=== PATIENT | female | born 1950 | race Hispanic/Latino ===

== ENCOUNTER → 2017-12-27 | Outpatient (CLI) | payer OTHER | END | disposition home or self-care (01) | LOC: OIH 08:28 | PROVIDERS: ATTEND Family Medicine | DX: M19.012 Primary osteoarthritis, left shoulder (principal) | CPT/HCPCS: 73030 ==

== ENCOUNTER → 2018-04-05 | Outpatient (CLI) | payer OTHER | END | disposition home or self-care (01) | LOC: RAH 11:06 | PROVIDERS: ATTEND Family Medicine | DX: Z12.31 Encounter for screening mammogram for malignant neoplasm of breast (principal) | CPT/HCPCS: 77067 ==

== ENCOUNTER 2018-08-05 04:38 | Emergency (ER) | payer OTHER ==
[2018-08-05 05:13] LABS: BASOPHILS % (AUTO) 0.6 % (0.0-5.0); EOSINOPHILS % (AUTO) 2.4 % (0.0-8.0); HEMATOCRIT 40.2 % (36-48); LYMPHOCYTES % (AUTO) 37.6 % (21.0-51.0); MEAN CORPUSCULAR HEMOGLOBIN 28.7 pg (27.0-33.0); MEAN CORPUSCULAR VOLUME 87.1 fL (79-99); MONOCYTES % (AUTO) 6.6 % (3.0-13.0); NEUTROPHILS % (AUTO) 52.8 % (40.0-77.0); PLATELET COUNT (AUTO) 223 K/uL (130-400); RED BLOOD CELL COUNT(AUTO) 4.62 MIL/uL (4.00-5.50); RED CELL DISTRIBUTION WIDTH 13.8 % (11.0-15.5); WHITE BLOOD COUNT (AUTO) 7.2 K/uL (4.8-10.8)
[2018-08-05 05:25] LABS: CREATININE 0.7 mg/dL (0.5-1.5); POTASSIUM 3.6 mmol/L (3.5-5.1)
[2018-08-05 05:27] LABS: APPEARANCE,URINE Clear (CLEAR); BILIRUBIN,URINE Negative (NEGATIVE); COLOR,URINE Yellow (YELLOW); GLUCOSE, URINE (UA) Negative (NEGATIVE); KETONES,URINE Negative (NEGATIVE); LEUKOCYTE ESTERASE ,URINE Small (NEGATIVE); NITRATE,URINE Negative (NEGATIVE); OCCULT BLOOD,URINE Negative (NEGATIVE); PH,URINE 5.5 (5.0-8.0); PROTEIN,URINE Negative (NEGATIVE); UROBILINOGEN,URINE 0.2 mg/dL (0.2-1.0)
[2018-08-05] MEDS ORDERED: SUCRALFATE 1 GM TABLET ONE (05:28)
[2018-08-05] MEDS ORDERED: HYOSCYAMINE SULFATE 0.125 MG TAB.SUBL SL ONE (05:28)
[2018-08-05 05:53] LABS: BACTERIA,URINE None Seen /HPF (None Seen); RBC,URINE None Seen /HPF (0-1); SQUAMOUS EPITHELIAL CELL,UR Rare /HPF (0-2); WBC,URINE 0-1 /HPF (0-1)
[2018-08-05 07:01] LABS: BILIRUBIN,DIRECT 0.1 mg/dL (0.0-0.3); BILIRUBIN,TOTAL 0.4 mg/dL (0.2-1.0); TOTAL PROTEIN, SERUM 7.3 g/dL (6.0-8.3)
== END 2018-08-05 07:26 | disposition home or self-care (01) ==
LOC: EDH 04:38
DX: R10.13 Epigastric pain (principal); I10 Essential (primary) hypertension; E78.00 Pure hypercholesterolemia, unspecified; K21.9 Gastro-esophageal reflux disease without esophagitis; F41.9 Anxiety disorder, unspecified; Z90.49 Acquired absence of other specified parts of digestive tract; Z90.710 Acquired absence of both cervix and uterus; Z88.1 Allergy status to other antibiotic agents; Z88.8 Allergy status to other drugs, medicaments and biological substances
CPT/HCPCS: 36415; 80048; 80076; 81001; 82150; 83690; 84484; 85025; 93005

== ENCOUNTER → 2018-09-18 | Outpatient (CLI) | payer OTHER, MEDICARE | END | disposition home or self-care (01) | LOC: RAH 10:37 | PROVIDERS: ATTEND Internal Medicine Gastroenterology | DX: R14.0 Abdominal distension (gaseous) (principal); R10.9 Unspecified abdominal pain; R11.0 Nausea | CPT/HCPCS: 78264; A9541 ==

== ENCOUNTER → 2018-11-17 | Outpatient (CLI) | payer OTHER, MEDICARE | END | disposition home or self-care (01) | LOC: OIH 14:40 | PROVIDERS: ATTEND Family Medicine | DX: M25.561 Pain in right knee (principal) | CPT/HCPCS: 73562 ==

== ENCOUNTER → 2019-05-04 | Outpatient (CLI) | payer OTHER, MEDICARE | END | disposition home or self-care (01) | LOC: RAH 10:52 | PROVIDERS: ATTEND Family Medicine | DX: Z12.31 Encounter for screening mammogram for malignant neoplasm of breast (principal) | CPT/HCPCS: 77067 ==

== ENCOUNTER → 2019-05-07 | Outpatient (CLI) | payer OTHER, MEDICARE | END | disposition home or self-care (01) | LOC: RAH 10:00 | PROVIDERS: ATTEND Family Medicine | DX: R32 Unspecified urinary incontinence (principal); M54.5 Low back pain | CPT/HCPCS: 76770 ==

== ENCOUNTER 2020-09-22 13:31 | Emergency (ER) | payer OTHER, MEDICARE ==
[~2020-09-22] VITALS: Ht 154.9 cm; Wt 60.3 kg
[2020-09-22 13:38] VITALS: BP 154/66
[2020-09-22 17:50] VITALS: BP 154/66
[2020-09-22 18:28] LABS: BASOPHILS % (AUTO) 0.2 % (0.0-5.0); HEMATOCRIT 40.2 % (36-48); LYMPHOCYTES % (AUTO) 37.8 % (21.0-51.0); MEAN CORPUSCULAR HEMOGLOBIN 28.5 pg (27.0-33.0); MEAN CORPUSCULAR HGB CONC 33.1 g/dL (32.0-36.0); MEAN CORPUSCULAR VOLUME 86.1 fL (79-99); NEUTROPHILS % (AUTO) 52.8 % (40.0-77.0); PLATELET COUNT (AUTO) 169 K/uL (130-400); RED BLOOD CELL COUNT(AUTO) 4.67 MIL/uL (4.00-5.50); RED CELL DISTRIBUTION WIDTH 13.9 % (11.0-15.5)
[2020-09-22] MEDS ORDERED: DEXAMETHASONE 10MG/ML 1ML VIAL 0 MG in 0.9%NACL 50ML 50 ML IV SCH (19:00)
[2020-09-22 19:39] LABS: CREATININE 0.8 mg/dL (0.5-1.5)
[2020-09-22 19:43] LABS: ALBUMIN 3.6 g/dL (3.5-5.0); BILIRUBIN,TOTAL 0.3 mg/dL (0.2-1.0); TOTAL PROTEIN, SERUM 7.8 g/dL (6.0-8.3)
[2020-09-22] MEDS: PHARMACY COMMUNICATION MISC SCH ×4 (20:30→23:30)
[2020-09-22] MEDS ORDERED: 0.9%NACL 1000ML 1,000 ML IV ONE (20:30)
[2020-09-22] MEDS ORDERED: DEXAMETHASONE SOD PHOSPHATE 10MG/ML 1ML VIAL ONE (20:33)
[2020-09-22] MEDS ORDERED: DEXAMETHASONE SOD PHOSPHATE 10MG/ML 1ML VIAL IVP STA (20:36)
[2020-09-22] MEDS ORDERED: CETI10CA5 PO (20:51)
[2020-09-22] MEDS ORDERED: DICY20TA2 PO (20:51)
[2020-09-22] MEDS ORDERED: DEXA6TAB7 PO (20:51)
[2020-09-22] MEDS ORDERED: AZIT500T4 PO (20:51)
[2020-09-22] MEDS ORDERED: IVER3TAB PO (20:51)
[2020-09-22] MEDS ORDERED: ONDA4TAB10 PO (20:51)
[2020-09-22] MEDS ORDERED: 0.9% NACL 250ML 250 ML IV ONE (21:00)
[2020-09-22] MEDS ORDERED: AZITHROMYCIN 500MG+NS 250ML IV ONE (21:00)
[2020-09-22 23:39] VITALS: BP 148/70
== END 2020-09-23 00:38 | disposition home or self-care (01) ==
LOC: EDH 13:31
DX: U07.1 COVID-19 (principal); A08.4 Viral intestinal infection, unspecified; E78.00 Pure hypercholesterolemia, unspecified; I10 Essential (primary) hypertension; Z79.52 Long term (current) use of systemic steroids; Z88.1 Allergy status to other antibiotic agents; Z88.2 Allergy status to sulfonamides
CPT/HCPCS: 36415; 71045; 80053; 83690; 85025; 87635; 87804 ×2; 96365; 96375; 99284; C9803; J0456; J1100; J7030

== ENCOUNTER 2020-09-29 18:36 | Inpatient (IN) | payer OTHER, MEDICARE ==
[~2020-09-29] VITALS: Ht 154.9 cm; Wt 59.0 kg
[~2020-09-29 18:36] MED LIST: AZIT500T4 PO; CETI10CA5 PO; DEXA6TAB7 PO; DICY20TA2 PO; IVER3TAB PO; ONDA4TAB10 PO
[2020-09-29 18:50] VITALS: BP 148/64
[2020-09-29] MEDS ORDERED: HYDRALAZINE 20MG/ML VIAL IV PRN (19:00)
[2020-09-29 19:13] LABS: BASOPHILS % (AUTO) 0.1 % (0.0-5.0); EOSINOPHILS % (AUTO) 0.2 % (0.0-8.0); HEMATOCRIT 34.1 % (36-48); LYMPHOCYTES % (AUTO) 12.1 % (21.0-51.0); MEAN CORPUSCULAR HEMOGLOBIN 27.7 pg (27.0-33.0); MEAN CORPUSCULAR HGB CONC 32.6 g/dL (32.0-36.0); MONOCYTES % (AUTO) 6.1 % (3.0-13.0); NEUTROPHILS % (AUTO) 80.4 % (40.0-77.0); PLATELET COUNT (AUTO) 339 K/uL (130-400); RED BLOOD CELL COUNT(AUTO) 4.01 MIL/uL (4.00-5.50); RED CELL DISTRIBUTION WIDTH 13.6 % (11.0-15.5); WHITE BLOOD COUNT (AUTO) 9.1 K/uL (4.8-10.8)
[2020-09-29 19:27] LABS: CREATININE 0.7 mg/dL (0.5-1.5); POTASSIUM 4.1 mmol/L (3.5-5.1)
[2020-09-29 19:31] LABS: ALBUMIN 2.4 g/dL (3.5-5.0); BILIRUBIN,TOTAL 0.5 mg/dL (0.2-1.0); TOTAL PROTEIN, SERUM 6.6 g/dL (6.0-8.3)
[2020-09-29 19:34] LABS: INR 0.93 (0.85-1.15); PROTHROMBIN TIME 10.2 SEC (9.6-11.6)
[2020-09-29 19:36] LABS: PARTIAL THROMBOPLASTIN TIME 23.6 SEC (26.3-35.5)
[2020-09-29 19:53] VITALS: BP 136/65
[2020-09-29] MEDS ORDERED: IPRATROPIUM 0.5 MG/2.5 ML INH IH STA (19:58)
[2020-09-29] MEDS ORDERED: ALBUTEROL INHALER 90MCG/INH IH STA (19:58)
[2020-09-29] MEDS ORDERED: MONTELUKAST SODIUM 10 MG TAB PO SCH (20:00)
[2020-09-29] MEDS ORDERED: MAGNESIUM 2GM PREMIX 50ML 50 ML IV SCH (20:00)
[2020-09-29] MEDS ORDERED: ENOXAPARIN SODIUM 60 MG/0.6 ML SQ ONE (20:37)
[2020-09-29] MEDS ORDERED: ALBUTEROL INHALER 90MCG/INH IH ONE (21:11)
[2020-09-29] MEDS: DEXAMETHASONE SOD PHOSPHATE 4 MG/ML 1ML VIAL IVP SCH (21:12)
[2020-09-29 21:37] VITALS: BP 119/56
[2020-09-30 00:04] VITALS: BP 108/52
[2020-09-30] MEDS: AZITHROMYCIN 500MG+NS 250ML IV SCH (03:27)
[2020-09-30] MEDS ORDERED: DEXTROSE 50%-WATER 50 ML DISP.SYRIN IV PRN (03:30)
[2020-09-30] MEDS ORDERED: KCL 20 MEQ ERTAB PO PRN (03:30)
[2020-09-30] MEDS ORDERED: ONDANSETRON 4MG INJ IV PRN (03:30)
[2020-09-30] MEDS ORDERED: DOXYCYCLINE 100MG IVPB (VIAL) IVPB SCH (03:30)
[2020-09-30] MEDS ORDERED: POTASSIUM CHLORIDE 10MEQ/100ML 100 ML IV PRN (03:30)
[2020-09-30] MEDS ORDERED: AZITHROMYCIN 500MG VIAL IVPB SCH (03:30)
[2020-09-30] MEDS ORDERED: LABETALOL 20MG SYG IV PRN (03:30)
[2020-09-30] MEDS ORDERED: NITROGLYCERIN 0.4 MG SL TAB SL PRN (03:30)
[2020-09-30] MEDS ORDERED: GLUCAGON 1MG KIT 1 MG ML IM PRN (03:30)
[2020-09-30] MEDS ORDERED: ACETAMINOPHEN 325 MG TAB PO PRN ×2 (03:30)
[2020-09-30] MEDS ORDERED: MAG/ALUM/SIMETH 30 ML UDCUP PO PRN (03:30)
[2020-09-30] MEDS ORDERED: POTASSIUM CHLORIDE 10% ELIXIR 20 MEQ/15 ML UDCUP PO PRN (03:30)
[2020-09-30] MEDS ORDERED: GUAIFENESIN-DM 200/20 MG 10 ML PO PRN (03:30)
[2020-09-30] MEDS ORDERED: ZOLPIDEM TARTRATE 5 MG TAB PO PRN (03:30)
[2020-09-30] MEDS ORDERED: 0.9% NACL 250ML IVPB SCH ×2 (03:30)
[2020-09-30] MEDS ORDERED: MAGNESIUM 2GM PREMIX 50ML 50 ML IV PRN (03:30)
[2020-09-30 03:37] VITALS: BP 119/60
[2020-09-30] MEDS: 0.9% NACL 250ML 250 ML IV SCH ×3 (03:54→16:26)
[2020-09-30] MEDS: DOXYCYCLINE 100MG+NS 250ML IV SCH ×2 (04:29→16:26)
[2020-09-30 06:14] LABS: BASOPHILS % (AUTO) 0.2 % (0.0-5.0); HEMATOCRIT 34.6 % (36-48); LYMPHOCYTES % (AUTO) 7.1 % (21.0-51.0); MEAN CORPUSCULAR HEMOGLOBIN 27.7 pg (27.0-33.0); MEAN CORPUSCULAR HGB CONC 31.5 g/dL (32.0-36.0); MEAN CORPUSCULAR VOLUME 87.8 fL (79-99); MONOCYTES % (AUTO) 2.7 % (3.0-13.0); NEUTROPHILS % (AUTO) 88.9 % (40.0-77.0); PLATELET COUNT (AUTO) 302 K/uL (130-400); RED BLOOD CELL COUNT(AUTO) 3.94 MIL/uL (4.00-5.50); RED CELL DISTRIBUTION WIDTH 13.6 % (11.0-15.5); WHITE BLOOD COUNT (AUTO) 6.6 K/uL (4.8-10.8)
[2020-09-30 06:35] LABS: ALBUMIN 2.1 g/dL (3.5-5.0); BILIRUBIN,TOTAL 0.4 mg/dL (0.2-1.0); CREATININE 0.6 mg/dL (0.5-1.5); CRP QUANTITATIVE 150.7 mg/L (0.00-9.0); POTASSIUM 4.4 mmol/L (3.5-5.1); TOTAL PROTEIN, SERUM 6.4 g/dL (6.0-8.3)
[2020-09-30] MEDS ORDERED: IOHEXOL 350 MG/ML 100ML INFUS..BTL IV ONE (06:41)
[2020-09-30 06:53] LABS: LYMPHOCYTES % (MANUAL) 6 % (22-44); MAN.DIFF COMMENT-IMPRESSION MANUAL DIFFERENTIAL; MONOCYTES % (MANUAL) 3 % (2-9); PLATELET MORPHOLOGY COMMENT ADEQUATE; SEGMENTED NEUTROPHILS % 91 % (40-70)
[2020-09-30] MEDS: INSULIN HUMULIN R 100 UNIT/ML 3ML SQ SCH ×4 (07:30→21:32)
[2020-09-30 08:30] VITALS: BP 135/63
[2020-09-30] MEDS: FAMOTIDINE 20MG VIAL IV SCH (09:00)
[2020-09-30] MEDS ORDERED: SOLU-MEDROL 125MG VIAL IVP SCH (09:00)
[2020-09-30] MEDS: ATORVASTATIN 10 MG TABLET PO SCH (09:06)
[2020-09-30] MEDS: BENZONATATE 100 MG CAPSULE PO SCH ×3 (09:06→21:31)
[2020-09-30] MEDS: LISINOPRIL 10 MG TABLET PO SCH (09:06)
[2020-09-30] MEDS: ENOXAPARIN SODIUM 40 MG/0.4 ML SYRINGE SQ SCH (09:06)
[2020-09-30] MEDS: FENOFIBRATE NANOCRYSTALLIZED 145 MG TAB PO SCH ×2 (10:00→10:05)
[2020-09-30] MEDS ORDERED: FUROSEMIDE 20MG VIAL IV SCH (11:00)
[2020-09-30] MEDS: LORAZEPAM 2 MG/ML 1 ML VIAL IVP PRN (13:07)
[2020-09-30] MEDS: DICYCLOMINE HCL 20 MG TAB PO SCH ×2 (15:16→21:31)
[2020-09-30 16:55] VITALS: BP 135/74
[2020-09-30] MEDS: SOLU-MEDROL 125MG VIAL IVP SCH (17:33)
[2020-09-30 19:40] LABS: APPEARANCE,URINE Clear (CLEAR); BILIRUBIN,URINE Negative (NEGATIVE); COLOR,URINE Yellow (YELLOW); GLUCOSE, URINE (UA) Negative (NEGATIVE); KETONES,URINE Negative (NEGATIVE); LEUKOCYTE ESTERASE ,URINE Negative (NEGATIVE); NITRATE,URINE Negative (NEGATIVE); OCCULT BLOOD,URINE Negative (NEGATIVE); PH,URINE 5.5 (5.0-8.0); PROTEIN,URINE Negative (NEGATIVE); UROBILINOGEN,URINE 0.2 mg/dL (0.2-1.0)
[2020-09-30 20:50] VITALS: BP 121/61
[2020-09-30] MEDS: DEXAMETHASONE SOD PHOSPHATE 4 MG/ML 1ML VIAL IVP SCH (21:31)
[2020-10-01] MEDS: SOLU-MEDROL 125MG VIAL IVP SCH ×3 (00:43→17:13)
[2020-10-01] MEDS: 0.9% NACL 250ML 250 ML IV SCH ×3 (03:01→17:13)
[2020-10-01] MEDS: AZITHROMYCIN 500MG+NS 250ML IV SCH (03:01)
[2020-10-01 04:51] VITALS: BP 124/54
[2020-10-01 05:45] VITALS: BP 135/62
[2020-10-01 06:35] LABS: HEMATOCRIT 35.3 % (36-48); MEAN CORPUSCULAR HEMOGLOBIN 27.9 pg (27.0-33.0); MEAN CORPUSCULAR VOLUME 87.2 fL (79-99); MONOCYTES % (AUTO) 5.4 % (3.0-13.0); NEUTROPHILS % (AUTO) 86.8 % (40.0-77.0); PLATELET COUNT (AUTO) 368 K/uL (130-400); RED BLOOD CELL COUNT(AUTO) 4.05 MIL/uL (4.00-5.50); RED CELL DISTRIBUTION WIDTH 13.2 % (11.0-15.5); WHITE BLOOD COUNT (AUTO) 10.6 K/uL (4.8-10.8)
[2020-10-01 06:46] LABS: CREATININE 0.7 mg/dL (0.5-1.5); CRP QUANTITATIVE 88.5 mg/L (0.00-9.0); MAGNESIUM 2.5 mg/dL (1.80-2.40); PHOSPHORUS 4.3 mg/dL (2.5-4.9); POTASSIUM 3.8 mmol/L (3.5-5.1)
[2020-10-01] MEDS ORDERED: HYDROCODONE/ACETAMINOPHEN 5/325 MG TAB PO PRN (07:00)
[2020-10-01 07:23] LABS: ABG BASE EXCESS 4.9 mmol/L (-2.0-3.0); ABG HCO3 29.2 mmol/L (21.0-28.0); ABG OXYGEN SATURATION 97.1 % (95.0-99.0); ABG PCO2 42 mmHg (32-45)
[2020-10-01] MEDS ORDERED: [UNRECOGNIZED DRUG - REMARK] MISC SCH (07:30)
[2020-10-01] MEDS ORDERED: COMPOUND IV REFRIGERATED 1 EACH IVSOLN MISC PRN (08:00)
[2020-10-01 08:30] VITALS: BP 137/59
[2020-10-01] MEDS: CETIRIZINE HCL 5 MG TABLET PO SCH (09:35)
[2020-10-01] MEDS: FENOFIBRATE NANOCRYSTALLIZED 145 MG TAB PO SCH ×2 (09:35→09:49)
[2020-10-01] MEDS: DICYCLOMINE HCL 20 MG TAB PO SCH ×3 (09:36→20:19)
[2020-10-01] MEDS: ENOXAPARIN SODIUM 40 MG/0.4 ML SYRINGE SQ SCH (09:36)
[2020-10-01] MEDS: BENZONATATE 100 MG CAPSULE PO SCH ×3 (09:36→20:19)
[2020-10-01] MEDS: INSULIN HUMULIN R 100 UNIT/ML 3ML SQ SCH ×4 (09:39→20:22)
[2020-10-01] MEDS: DOXYCYCLINE 100MG+NS 250ML IV SCH ×2 (09:42→17:13)
[2020-10-01] MEDS: ATORVASTATIN 10 MG TABLET PO SCH (09:43)
[2020-10-01] MEDS: LISINOPRIL 10 MG TABLET PO SCH (09:45)
[2020-10-01] MEDS: MAGNESIUM HYDROXIDE 30 ML/UDCUP PO PRN (11:18)
[2020-10-01] MEDS: FAMOTIDINE 20MG VIAL IV SCH (11:28)
[2020-10-01] MEDS ORDERED: REMDESIVIR (EUA) 520 200 MG in 0.9% NACL 250ML 250 ML IV SCH (12:00)
[2020-10-01 12:19] VITALS: BP 125/50
[2020-10-01 16:35] VITALS: BP 122/60
[2020-10-01] MEDS: DEXAMETHASONE SOD PHOSPHATE 4 MG/ML 1ML VIAL IVP SCH (20:18)
[2020-10-02] VITALS (7 sets, daily range): BP systolic 110–136; BP diastolic 47–87
[2020-10-02] MEDS: DOXYCYCLINE 100MG+NS 250ML IV SCH ×2 (03:10→18:17)
[2020-10-02] MEDS: 0.9% NACL 250ML 250 ML IV SCH ×3 (03:10→18:18)
[2020-10-02] MEDS: AZITHROMYCIN 500MG+NS 250ML IV SCH (03:10)
[2020-10-02 04:19] LABS: BASOPHILS % (AUTO) 0.1 % (0.0-5.0); HEMATOCRIT 33.8 % (36-48); LYMPHOCYTES % (AUTO) 6.8 % (21.0-51.0); MEAN CORPUSCULAR HEMOGLOBIN 27.8 pg (27.0-33.0); MEAN CORPUSCULAR VOLUME 86.9 fL (79-99); MONOCYTES % (AUTO) 5.5 % (3.0-13.0); NEUTROPHILS % (AUTO) 86.9 % (40.0-77.0); PLATELET COUNT (AUTO) 378 K/uL (130-400); RED BLOOD CELL COUNT(AUTO) 3.89 MIL/uL (4.00-5.50); RED CELL DISTRIBUTION WIDTH 13.3 % (11.0-15.5); WHITE BLOOD COUNT (AUTO) 11.6 K/uL (4.8-10.8)
[2020-10-02 04:36] LABS: CREATININE 0.7 mg/dL (0.5-1.5); CRP QUANTITATIVE 38.5 mg/L (0.00-9.0); POTASSIUM 4.4 mmol/L (3.5-5.1)
[2020-10-02] MEDS: INSULIN HUMULIN R 100 UNIT/ML 3ML SQ SCH ×4 (04:40→21:00)
[2020-10-02] MEDS: REMDESIVIR LABS MISC SCH (04:45)
[2020-10-02] MEDS: FENOFIBRATE NANOCRYSTALLIZED 145 MG TAB PO SCH ×2 (10:00→10:26)
[2020-10-02] MEDS ORDERED: MAGNESIUM CITRATE 296 ML SOLUTION PO SCH (10:00)
[2020-10-02] MEDS: DICYCLOMINE HCL 20 MG TAB PO SCH ×3 (10:24→21:25)
[2020-10-02] MEDS: ATORVASTATIN 10 MG TABLET PO SCH (10:24)
[2020-10-02] MEDS: BENZONATATE 100 MG CAPSULE PO SCH ×3 (10:24→21:25)
[2020-10-02] MEDS: LISINOPRIL 10 MG TABLET PO SCH (10:24)
[2020-10-02] MEDS: CETIRIZINE HCL 5 MG TABLET PO SCH (10:26)
[2020-10-02] MEDS: ENOXAPARIN SODIUM 40 MG/0.4 ML SYRINGE SQ SCH (10:28)
[2020-10-02] MEDS: LACTULOSE 20 GM/30 ML UDCUP PO PRN (10:28)
[2020-10-02 11:54] LABS: ALANINE AMINOTRANSFERASE 58 U/L (12-78); ASPARTATE AMINOTRANSFERASE 23 U/L (10-37)
[2020-10-02] MEDS: REMDESIVIR (EUA) 520 100 MG in 0.9% NACL 250ML 250 ML IV SCH (14:11)
[2020-10-02] MEDS: FAMOTIDINE 20MG VIAL IV SCH (14:11)
[2020-10-02] MEDS: SOLU-MEDROL 125MG VIAL IVP SCH (18:18)
[2020-10-02] MEDS: LORAZEPAM 2 MG/ML 1 ML VIAL IVP PRN (19:01)
[2020-10-03] MEDS: SOLU-MEDROL 125MG VIAL IVP SCH ×3 (00:56→18:30)
[2020-10-03] MEDS: AZITHROMYCIN 500MG+NS 250ML IV SCH (03:55)
[2020-10-03] MEDS: 0.9% NACL 250ML 250 ML IV SCH ×3 (03:55→16:07)
[2020-10-03] MEDS: DOXYCYCLINE 100MG+NS 250ML IV SCH ×2 (03:55→16:06)
[2020-10-03 04:05] VITALS: BP 134/59
[2020-10-03 04:26] LABS: HEMATOCRIT 36.2 % (36-48); MEAN CORPUSCULAR HEMOGLOBIN 27.8 pg (27.0-33.0); MEAN CORPUSCULAR VOLUME 86.6 fL (79-99); RED BLOOD CELL COUNT(AUTO) 4.18 MIL/uL (4.00-5.50); RED CELL DISTRIBUTION WIDTH 13.3 % (11.0-15.5); WHITE BLOOD COUNT (AUTO) 9.9 K/uL (4.8-10.8)
[2020-10-03 04:46] LABS: ALBUMIN 2.1 g/dL (3.5-5.0); BILIRUBIN,TOTAL 0.4 mg/dL (0.2-1.0); CREATININE 0.6 mg/dL (0.5-1.5); CRP QUANTITATIVE 31.1 mg/L (0.00-9.0); POTASSIUM 4.6 mmol/L (3.5-5.1); TOTAL PROTEIN, SERUM 5.6 g/dL (6.0-8.3)
[2020-10-03] MEDS: INSULIN HUMULIN R 100 UNIT/ML 3ML SQ SCH ×4 (05:13→21:07)
[2020-10-03] MEDS: REMDESIVIR LABS MISC SCH (05:13)
[2020-10-03 08:00] VITALS: BP 126/62
[2020-10-03] MEDS: FENOFIBRATE NANOCRYSTALLIZED 145 MG TAB PO SCH ×2 (08:22→10:10)
[2020-10-03] MEDS: FAMOTIDINE 20MG VIAL IV SCH (09:00)
[2020-10-03] MEDS: DICYCLOMINE HCL 20 MG TAB PO SCH ×3 (10:10→21:03)
[2020-10-03] MEDS: BENZONATATE 100 MG CAPSULE PO SCH ×3 (10:10→21:03)
[2020-10-03] MEDS: ATORVASTATIN 10 MG TABLET PO SCH (10:10)
[2020-10-03] MEDS: LISINOPRIL 10 MG TABLET PO SCH (10:11)
[2020-10-03] MEDS: CETIRIZINE HCL 5 MG TABLET PO SCH (10:11)
[2020-10-03] MEDS: ENOXAPARIN SODIUM 40 MG/0.4 ML SYRINGE SQ SCH (10:12)
[2020-10-03 12:00] VITALS: BP 116/59
[2020-10-03] MEDS: REMDESIVIR (EUA) 520 100 MG in 0.9% NACL 250ML 250 ML IV SCH (12:28)
[2020-10-03 16:00] VITALS: BP 119/51
[2020-10-03 20:33] VITALS: BP 124/60
[2020-10-03] MEDS: LORAZEPAM 2 MG/ML 1 ML VIAL IVP PRN (21:03)
[2020-10-03] MEDS: MAGNESIUM HYDROXIDE 30 ML/UDCUP PO PRN (21:03)
[2020-10-03 23:35] VITALS: BP 129/67
[2020-10-04] MEDS: SOLU-MEDROL 125MG VIAL IVP SCH ×3 (01:03→17:39)
[2020-10-04] MEDS: DOXYCYCLINE 100MG+NS 250ML IV SCH ×2 (02:28→15:15)
[2020-10-04] MEDS: 0.9% NACL 250ML 250 ML IV SCH ×3 (02:28→15:15)
[2020-10-04] MEDS: AZITHROMYCIN 500MG+NS 250ML IV SCH (02:28)
[2020-10-04 03:54] VITALS: BP 120/59
[2020-10-04 04:34] LABS: HEMATOCRIT 36.1 % (36-48); MEAN CORPUSCULAR HEMOGLOBIN 27.6 pg (27.0-33.0); MEAN CORPUSCULAR HGB CONC 32.1 g/dL (32.0-36.0); MEAN CORPUSCULAR VOLUME 85.7 fL (79-99); RED BLOOD CELL COUNT(AUTO) 4.21 MIL/uL (4.00-5.50); RED CELL DISTRIBUTION WIDTH 13.2 % (11.0-15.5); WHITE BLOOD COUNT (AUTO) 11.1 K/uL (4.8-10.8)
[2020-10-04 04:56] LABS: ALBUMIN 2.2 g/dL (3.5-5.0); BILIRUBIN,TOTAL 0.4 mg/dL (0.2-1.0); CREATININE 0.6 mg/dL (0.5-1.5); CRP QUANTITATIVE 20.1 mg/L (0.00-9.0); POTASSIUM 4.3 mmol/L (3.5-5.1); TOTAL PROTEIN, SERUM 5.8 g/dL (6.0-8.3)
[2020-10-04] MEDS: REMDESIVIR LABS MISC SCH (06:03)
[2020-10-04] MEDS: INSULIN HUMULIN R 100 UNIT/ML 3ML SQ SCH ×4 (06:03→21:53)
[2020-10-04] MEDS: FENOFIBRATE NANOCRYSTALLIZED 145 MG TAB PO SCH ×2 (07:47→08:37)
[2020-10-04 07:54] VITALS: BP 129/68
[2020-10-04] MEDS: CETIRIZINE HCL 5 MG TABLET PO SCH (08:37)
[2020-10-04] MEDS: DICYCLOMINE HCL 20 MG TAB PO SCH ×3 (08:37→20:27)
[2020-10-04] MEDS: BENZONATATE 100 MG CAPSULE PO SCH ×3 (08:37→20:28)
[2020-10-04] MEDS: LISINOPRIL 10 MG TABLET PO SCH (08:38)
[2020-10-04] MEDS: ATORVASTATIN 10 MG TABLET PO SCH (08:38)
[2020-10-04] MEDS: FAMOTIDINE 20MG VIAL IV SCH (08:38)
[2020-10-04] MEDS: ENOXAPARIN SODIUM 40 MG/0.4 ML SYRINGE SQ SCH (08:39)
[2020-10-04 11:52] VITALS: BP 126/60
[2020-10-04] MEDS: REMDESIVIR (EUA) 520 100 MG in 0.9% NACL 250ML 250 ML IV SCH (15:14)
[2020-10-04 16:19] VITALS: BP 130/61
[2020-10-04 19:34] VITALS: BP 122/58
[2020-10-04 23:44] VITALS: BP 108/57
[2020-10-05] MEDS: SOLU-MEDROL 125MG VIAL IVP SCH ×2 (01:42→08:51)
[2020-10-05] MEDS: 0.9% NACL 250ML 250 ML IV SCH ×3 (01:43→15:49)
[2020-10-05] MEDS: DOXYCYCLINE 100MG+NS 250ML IV SCH ×2 (01:43→15:49)
[2020-10-05] MEDS: AZITHROMYCIN 500MG+NS 250ML IV SCH (01:43)
[2020-10-05 04:07] VITALS: BP 119/59
[2020-10-05 04:31] LABS: CREATININE 0.5 mg/dL (0.5-1.5); CRP QUANTITATIVE 9.4 mg/L (0.00-9.0); POTASSIUM 4.2 mmol/L (3.5-5.1)
[2020-10-05] MEDS: INSULIN HUMULIN R 100 UNIT/ML 3ML SQ SCH ×4 (06:08→21:06)
[2020-10-05] MEDS: FENOFIBRATE NANOCRYSTALLIZED 145 MG TAB PO SCH ×2 (07:25→08:50)
[2020-10-05 08:01] VITALS: BP 133/63
[2020-10-05] MEDS: DICYCLOMINE HCL 20 MG TAB PO SCH ×3 (08:50→20:26)
[2020-10-05] MEDS: BENZONATATE 100 MG CAPSULE PO SCH ×3 (08:50→20:26)
[2020-10-05] MEDS: FAMOTIDINE 20MG VIAL IV SCH (08:50)
[2020-10-05] MEDS: ATORVASTATIN 10 MG TABLET PO SCH (08:50)
[2020-10-05] MEDS: ENOXAPARIN SODIUM 40 MG/0.4 ML SYRINGE SQ SCH (08:51)
[2020-10-05] MEDS: LISINOPRIL 10 MG TABLET PO SCH (08:51)
[2020-10-05] MEDS: CETIRIZINE HCL 5 MG TABLET PO SCH (08:51)
[2020-10-05 11:52] VITALS: BP 125/56
[2020-10-05] MEDS: MAGNESIUM HYDROXIDE 30 ML/UDCUP PO PRN (12:11)
[2020-10-05] MEDS: REMDESIVIR LABS MISC SCH (14:30)
[2020-10-05] MEDS: REMDESIVIR (EUA) 520 100 MG in 0.9% NACL 250ML 250 ML IV SCH (14:32)
[2020-10-05 16:19] VITALS: BP 134/56
[2020-10-05 19:36] VITALS: BP 136/66
[2020-10-05] MEDS: SOLU-MEDROL 40MG VIAL IVP SCH (20:25)
[2020-10-05] MEDS: LORAZEPAM 2 MG/ML 1 ML VIAL IVP PRN (20:27)
[2020-10-05 23:38] VITALS: BP 124/56
[2020-10-06] MEDS: AZITHROMYCIN 500MG+NS 250ML IV SCH (02:44)
[2020-10-06] MEDS: 0.9% NACL 250ML 250 ML IV SCH ×3 (02:44→14:59)
[2020-10-06] MEDS: DOXYCYCLINE 100MG+NS 250ML IV SCH ×2 (02:44→14:59)
[2020-10-06 03:41] VITALS: BP 127/68
[2020-10-06] MEDS: INSULIN HUMULIN R 100 UNIT/ML 3ML SQ SCH ×4 (05:15→20:43)
[2020-10-06 08:16] VITALS: BP 131/59
[2020-10-06] MEDS: FENOFIBRATE NANOCRYSTALLIZED 145 MG TAB PO SCH ×2 (08:28→08:51)
[2020-10-06] MEDS: FAMOTIDINE 20MG VIAL IV SCH (08:50)
[2020-10-06] MEDS: LISINOPRIL 10 MG TABLET PO SCH (08:50)
[2020-10-06] MEDS: BENZONATATE 100 MG CAPSULE PO SCH ×3 (08:50→20:26)
[2020-10-06] MEDS: LACTULOSE 20 GM/30 ML UDCUP PO PRN (08:51)
[2020-10-06] MEDS: DICYCLOMINE HCL 20 MG TAB PO SCH ×3 (08:51→20:35)
[2020-10-06] MEDS: SOLU-MEDROL 40MG VIAL IVP SCH ×2 (08:51→20:26)
[2020-10-06] MEDS: ATORVASTATIN 10 MG TABLET PO SCH (08:51)
[2020-10-06] MEDS: CETIRIZINE HCL 5 MG TABLET PO SCH (08:51)
[2020-10-06] MEDS: ENOXAPARIN SODIUM 40 MG/0.4 ML SYRINGE SQ SCH (08:52)
[2020-10-06 11:51] VITALS: BP 124/57
[2020-10-06 16:00] VITALS: BP 112/62
[2020-10-06 20:02] VITALS: BP 130/60
[2020-10-06] MEDS: LORAZEPAM 2 MG/ML 1 ML VIAL IVP PRN (20:43)
[2020-10-06 23:33] VITALS: BP 104/48
[2020-10-07] MEDS: 0.9% NACL 250ML 250 ML IV SCH ×2 (03:13→06:12)
[2020-10-07] MEDS: DOXYCYCLINE 100MG+NS 250ML IV SCH (03:13)
[2020-10-07 03:33] VITALS: BP 113/43
[2020-10-07] MEDS: AZITHROMYCIN 500MG+NS 250ML IV SCH (06:12)
[2020-10-07] MEDS: INSULIN HUMULIN R 100 UNIT/ML 3ML SQ SCH ×4 (06:13→20:06)
[2020-10-07] MEDS: FENOFIBRATE NANOCRYSTALLIZED 145 MG TAB PO SCH ×2 (07:43→08:21)
[2020-10-07] MEDS: CETIRIZINE HCL 5 MG TABLET PO SCH (08:21)
[2020-10-07] MEDS: BENZONATATE 100 MG CAPSULE PO SCH ×3 (08:21→20:03)
[2020-10-07] MEDS: LISINOPRIL 10 MG TABLET PO SCH (08:22)
[2020-10-07] MEDS: ATORVASTATIN 10 MG TABLET PO SCH (08:22)
[2020-10-07] MEDS: SOLU-MEDROL 40MG VIAL IVP SCH ×2 (08:22→20:04)
[2020-10-07] MEDS: DICYCLOMINE HCL 20 MG TAB PO SCH ×3 (08:22→20:03)
[2020-10-07] MEDS: FAMOTIDINE 20MG TAB PO SCH ×2 (08:22→20:03)
[2020-10-07] MEDS: ENOXAPARIN SODIUM 40 MG/0.4 ML SYRINGE SQ SCH (08:23)
[2020-10-07] MEDS: LACTULOSE 20 GM/30 ML UDCUP PO PRN (08:37)
[2020-10-07 08:58] VITALS: BP 134/65
[2020-10-07 12:26] VITALS: BP 120/64
[2020-10-07 13:31] LABS: HEMATOCRIT 39.5 % (36-48); MEAN CORPUSCULAR HEMOGLOBIN 27.8 pg (27.0-33.0); MEAN CORPUSCULAR HGB CONC 31.4 g/dL (32.0-36.0); MEAN CORPUSCULAR VOLUME 88.6 fL (79-99); RED BLOOD CELL COUNT(AUTO) 4.46 MIL/uL (4.00-5.50); RED CELL DISTRIBUTION WIDTH 13.5 % (11.0-15.5); WHITE BLOOD COUNT (AUTO) 10.7 K/uL (4.8-10.8)
[2020-10-07 13:39] LABS: CREATININE 0.8 mg/dL (0.5-1.5); POTASSIUM 3.9 mmol/L (3.5-5.1)
[2020-10-07 16:30] VITALS: BP 122/54
[2020-10-07 19:13] VITALS: BP 111/48
[2020-10-07] MEDS: LORAZEPAM 0.5 MG TABLET PO PRN (21:54)
[2020-10-07 23:27] VITALS: BP 101/50
[2020-10-08 03:35] VITALS: BP 137/69
[2020-10-08] MEDS: FENOFIBRATE NANOCRYSTALLIZED 145 MG TAB PO SCH ×2 (06:49→07:29)
[2020-10-08] MEDS: ENOXAPARIN SODIUM 40 MG/0.4 ML SYRINGE SQ SCH (07:28)
[2020-10-08] MEDS: BENZONATATE 100 MG CAPSULE PO SCH ×3 (07:29→20:37)
[2020-10-08] MEDS: DICYCLOMINE HCL 20 MG TAB PO SCH ×3 (07:29→20:43)
[2020-10-08] MEDS: CETIRIZINE HCL 5 MG TABLET PO SCH (07:29)
[2020-10-08] MEDS: FAMOTIDINE 20MG TAB PO SCH ×2 (07:29→20:37)
[2020-10-08] MEDS: ATORVASTATIN 10 MG TABLET PO SCH (07:29)
[2020-10-08] MEDS: LISINOPRIL 10 MG TABLET PO SCH (07:29)
[2020-10-08] MEDS: INSULIN HUMULIN R 100 UNIT/ML 3ML SQ SCH ×4 (07:30→20:43)
[2020-10-08] MEDS: SOLU-MEDROL 40MG VIAL IVP SCH ×2 (07:30→20:37)
[2020-10-08 08:00] VITALS: BP 102/55
[2020-10-08 11:57] VITALS: BP 105/54
[2020-10-08 16:00] VITALS: BP 95/42
[2020-10-08 19:41] VITALS: BP 108/58
[2020-10-08] MEDS: LORAZEPAM 0.5 MG TABLET PO PRN (20:37)
[2020-10-08 23:14] VITALS: BP 98/48
[2020-10-09 04:25] VITALS: BP 105/56
[2020-10-09] MEDS: INSULIN HUMULIN R 100 UNIT/ML 3ML SQ SCH (06:31)
[2020-10-09] MEDS ORDERED: ASPI-1197 PO (07:17)
[2020-10-09] MEDS ORDERED: PRED10TA3 PO (07:17)
[2020-10-09 08:00] VITALS: BP 115/48
[2020-10-09] MEDS: CETIRIZINE HCL 5 MG TABLET PO SCH (08:34)
[2020-10-09] MEDS: FENOFIBRATE NANOCRYSTALLIZED 145 MG TAB PO SCH ×2 (08:34→08:37)
[2020-10-09] MEDS: LISINOPRIL 10 MG TABLET PO SCH (08:35)
[2020-10-09] MEDS: FAMOTIDINE 20MG TAB PO SCH (08:35)
[2020-10-09] MEDS: DICYCLOMINE HCL 20 MG TAB PO SCH (08:35)
[2020-10-09] MEDS: ENOXAPARIN SODIUM 40 MG/0.4 ML SYRINGE SQ SCH (08:35)
[2020-10-09] MEDS: SOLU-MEDROL 40MG VIAL IVP SCH (08:35)
[2020-10-09] MEDS: ATORVASTATIN 10 MG TABLET PO SCH (08:35)
[2020-10-09] MEDS: BENZONATATE 100 MG CAPSULE PO SCH (08:35)
[2020-10-09 11:46] VITALS: BP 97/47
== END 2020-10-09 12:45 | disposition home or self-care (01) | DRG 177 ==
LOC: EDH 18:36 → EDHIP 21:17 → OBSVTOIN 21:17 → 2AH 10-01 05:40
PROVIDERS: ADMIT Internal Medicine; ATTEND Internal Medicine
PROC: XW033E5 Introduction of Remdesivir Anti-infective into Peripheral Vein, Percutaneous Approach, New Technology Group 5 (ICD-10-PCS; principal; 2020-10-05)
DX: U07.1 COVID-19 (principal); J12.82 Pneumonia due to coronavirus disease 2019; J96.01 Acute respiratory failure with hypoxia; E87.1 Hypo-osmolality and hyponatremia; I10 Essential (primary) hypertension; E78.5 Hyperlipidemia, unspecified; Z79.899 Other long term (current) drug therapy; Z90.710 Acquired absence of both cervix and uterus; Z90.49 Acquired absence of other specified parts of digestive tract; Z88.8 Allergy status to other drugs, medicaments and biological substances; Z88.2 Allergy status to sulfonamides
CPT/HCPCS: 36415; 36600; 71045; 71275; 80048; 80053; 81003; 82550; 82728; 82803; 82948; 83605; 83615; 83735; 83880; 84100; 84145; 84450; 84460; 84484; 85025; 85027; 85378; 85610; 85730; 86140; 87040; 87088; 87635; 87804; 93005; 94667; 94668; 94760; C9803; G0378; J0456; J1100; J1650; J1815; J1940; J2060; J2920; J2930; J3475; J3490; J7050; Q9967

== ENCOUNTER → 2020-11-24 | Outpatient (CLI) | payer OTHER, MEDICARE ==
[~2020-11-24] MED LIST changes: +ASPI-1197 PO; -AZIT500T4 PO; -DEXA6TAB7 PO; -DICY20TA2 PO; -IVER3TAB PO; -ONDA4TAB10 PO; +PRED10TA3 PO
== END | disposition home or self-care (01) ==
LOC: OIH 10:11
PROVIDERS: ATTEND Family Medicine
DX: M47.816 Spondylosis without myelopathy or radiculopathy, lumbar region (principal); M46.1 Sacroiliitis, not elsewhere classified
CPT/HCPCS: 72100; 72220

== ENCOUNTER → 2020-11-25 | Outpatient (CLI) | payer OTHER, MEDICARE | END | disposition home or self-care (01) | LOC: OIH 10:31 | PROVIDERS: ATTEND Family Medicine | DX: J18.9 Pneumonia, unspecified organism (principal); R91.8 Other nonspecific abnormal finding of lung field; M54.9 Dorsalgia, unspecified | CPT/HCPCS: 71046 ==

== ENCOUNTER → 2021-11-12 | Outpatient (CLI) | payer OTHER, MEDICARE | END | disposition home or self-care (01) | LOC: RAH 11:26 | PROVIDERS: ATTEND Family Medicine | DX: J32.9 Chronic sinusitis, unspecified (principal) | CPT/HCPCS: 70220 ==

== ENCOUNTER → 2021-12-04 | Outpatient (CLI) | payer OTHER, MEDICARE | END | disposition home or self-care (01) | LOC: RAH 09:49 | PROVIDERS: ATTEND Internal Medicine | DX: K21.9 Gastro-esophageal reflux disease without esophagitis (principal); R10.13 Epigastric pain; K29.50 Unspecified chronic gastritis without bleeding; R14.0 Abdominal distension (gaseous) | CPT/HCPCS: 74240 ==